=== PATIENT | female | born 1940 | race Caucasian/White ===

== ENCOUNTER 2024-07-22 12:20 | Outpatient (RCR) | payer OTHER, MEDICARE, SELFPAY ==
--- NOTE | 2024-07-23 14:31 | PT.OPE ---
PT [place] [facility] Eval PT [facility] Outpatient Eval Start: 07/22/24 14:02 Freq: Status: Active Protocol: Document 07/22/24 14:03 CHUYITA (Rec: 07/22/24 14:05 CHUYITA [id number]) E-signed By Adam Spicer DPT, MS Physical Therapy Outpatient Evaluation Insurance Information Recert Due Date 10/20/24 Insurance Name Medicare B,Other; See Comments Insurance Information/Comments [facility] Medical Diagnosis Pre-op right total knee arthroplasty Treating Diagnosis R knee pain, decreased R knee ROM, decreased R LE flexibility and strength, and gait dysfunction Referring MD 08/12/24 Subjective Preferred Name Juwan Subjective Pt is an 83 y.o. female who presents to PT prior to R TKA on 08/12/24 at [facility]. Has struggled with worsening B (R> L) knee pain over the past several years with increased difficulty with standing and walking. 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 Plans on having a L TKA as soon as she has recovered from her R TKA in order to travel to [facility]. Lives alone in a single-story townhouse that was built for alf with 1 step to enter from her garage and no steps at her front door. Has a 2-3 inch ledge entering her shower but has a built in seat along with grab bars and a toilet riser. Has a FWW from previous EDILBERTO surgery Her daughter will assist as long as needed after surgery. PMH includes B knee OA and a previous mild stroke with residual L-sided weakness. AGGR factors: walking, squatting, kneeling, standing, in<>out of cars, sleeping, uneven surfaces, extended sitting. ALLEV factors: ice, rest. Pt will perform post-op PT at [facility] in [place]. 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 Good quality of R quad set and SLR with B knee ROM of 0-0 -120 deg. Pt highly motivated to increase overall activity levels with less pain. He will benefit from continued skilled PT intervention to address these limitations, beginning PT at [facility] following R TKA. Primary Functional Limitations walking, squatting, kneeling, standing, in<>out of cars, sleeping, uneven surfaces, extended sitting Plan of Care Rehabilitation Potential Excellent Physical Therapy Goals Short-term goals to be completed in 4 weeks: 1.Pt will display improved R LE strength as evidenced by ability to perform >12 SLR of good quality to improve quality of gait and progress to ambulation with single point cane. 2.Pt will report waking <3 times per night due to R knee pain to improve quality of sleep. Long-term goals to be completed in 10 weeks: 1.Pt will be independent and compliant with HEP 2. Pt will display improved R knee passive ROM > 0-0-120 deg to improve quality of gait. 3.Pt will display improved R hip flex, hip ABD, quad and hamstring strength >4/5 to improve quality of gait without assistive device. 4.Pt report >75% improvement in LEFS questionnaire to significantly improve jackie to daily activities. Coordination/Communication With Referral Source Treatment Plan/Direct Interventions Gait Training,Joint Mobilization,Manual Therapy, Neuromuscular Re-ed, Therapeutic Activities, Therapeutic Exercises Frequency/Duration One pre-op visit then 2 x per week for at least 16-20 visits , decreasing visit frequency, as able. Patient Will Be Discharged From Therapy Completion of LTG(s),Skills Plateau,Independent w/HEP, Independently Progressing Evaluation Billing Untimed Code Treatment Minutes 25 Complexity Moderate Certification Information Initial Certification Date 07/22/24 Ending Certification Date 10/20/24 Provider Signature Required Yes Provider Signature Shows Agreement With POC & Medical Necessity Physician NPI Number Write NPI# Here Physician Comment/Change : Physician Signature & Date Requested Please Sign/Date Here
== END 2024-11-19 23:59 | disposition home or self-care (01) ==
PROVIDERS: Visit Provider Orthopaedic Surgery
DX: M17.11 Unilateral primary osteoarthritis, right knee (principal); M25.561 Pain in right knee; Z74.09 Other reduced mobility; R26.9 Unspecified abnormalities of gait and mobility; R53.1 Weakness; Z51.89 Encounter for other specified aftercare
CPT/HCPCS: 97110; 97162

== ENCOUNTER 2024-08-12 10:17 | Day surgery (SDC) | payer OTHER, MEDICARE, SELFPAY ==
[2024-08-12] VITALS (24 sets, daily range): BP systolic 110–153; BP diastolic 61–99; PULSE 70–98; RESP 14–20; TEMP 36.2–36.8; O2SAT 90–100; BMI 32.4
[2024-08-12] MEDS: OXYCODONE (CR) 10 MG TAB.ER.12H PO (12:08)
[2024-08-12] MEDS: ACETAMINOPHEN 500 MG TABLET 1000 MG PO ×2 (12:08→17:54)
[2024-08-12] MEDS: CELECOXIB 200 MG CAPSULE PO (12:08)
[2024-08-12] MEDS: LACTATED RINGERS 1000 ML 1,000 ML 100 ML IV (12:15)
[2024-08-12] MEDS: MIDAZOLAM HCL 1 MG/ML inj IVP (12:17)
[2024-08-12] MEDS: fentaNYL 100 MCG/2 ML inj IVP (12:17)
--- NOTE | 2024-08-12 12:18 | SUR.PREOP ---
TIME?OUT:?1215 PT/RN/MDA?VERIFICATION?OF?SURGICAL?SITE,?PROCEDURE,?AND?CONSENT OBTAINED?PRIOR?TO?INVASIVE?PROCEDURE. all in agreement
[2024-08-12] MEDS: SODIUM CHLORIDE 0.9 % (FLUSH) 10 ML SYRINGE IVF (12:23)
--- NOTE | 2024-08-12 12:34 | P.NB_ITS ---
Nerve Block Nerve Block Time Seen by Provider: 12:00 Date Seen: 08/12/24 Type of block requested by surgeon for post-operative analgesia: adductor canal Side: right Time out performed: Yes Verification of patient name: Yes Verification of date of : Yes Site marking: site marked Name of person performing procedure: Dagoberto Woodson Continuous monitoring Was continuous monitoring of O2 sat, B/P, medical laboratory technician, recorded every 15 minutes?: Yes Procedure Checklist: sterile prep, needles and gloves Ultrasound guided. Images saved: Yes Medications given in 5ml increments after negative aspiration: Ropivicaine %: 0.5 mL: 30 Needle gauge: 20 Decadron (mg): 10 Precedex (mcg): 25 Patient tolerated procedure well: Yes Additional comments: injected in 5ml increments after negative aspiration Block Charges Block Charge (with Pro Fee): Femoral Nerve Use of Ultrasound Machine for Block: Yes- US Guidance/pain block
--- NOTE | 2024-08-12 12:35 | P.NB_ITS ---
Nerve Block Nerve Block Time Seen by Provider: 12:00 Date Seen: 08/12/24 Type of block requested by surgeon for post-operative analgesia: geniculars Side: right Time out performed: Yes Verification of patient name: Yes Verification of date of : Yes Site marking: site marked Name of person performing procedure: Dagoberto Woodson Continuous monitoring Was continuous monitoring of O2 sat, B/P, behavioral health clinician, recorded every 15 minutes?: Yes Procedure Checklist: sterile prep, needles and gloves Ultrasound guided. Images saved: No Medications given in 5ml increments after negative aspiration: Ropivicaine %: 0.5 mL: 12 Needle gauge: 25 Patient tolerated procedure well: Yes Additional comments: Injected in 4ml increments after negative aspiration Block Charges Block Charge (with Pro Fee): Genicular Nerve Block Use of Ultrasound Machine for Block: No
[2024-08-12] MEDS: TRANEXAMIC ACID 100 MG/ML INJ 1000 MG IV (13:03)
[2024-08-12] MEDS: CEFAZOLIN 2 GM INJ IVP (13:03)
--- NOTE | 2024-08-12 14:11 | XR_ITS ---
Patient: BRUNO WISEMAN Facility:?[facility] Patient ID:?[id number] Site Patient ID:?[id number]. Site :?[id number] Study:?XRay-Knee Right postop 2V-08/12/2024 3:16:01 PM Ordering Physician:Laxmi Quintanilla Final Report: INDICATION: Postop TKA. TECHNIQUE: Two views of the right knee. FINDINGS: New right TKA. Components appear well seated. Adjacent postop soft tissue air. Dictated by Maldonado Kilgore MD @ 08/13/2024 11:29:01 AM Signed by:?Maldonado Kilgore MD @08/13/2024 11:29:01 AM (Electronic Signature)
--- NOTE | 2024-08-12 14:13 | PM.ORPRC ---
Procedure Note Date of procedure: 08/12/24 Procedure: PREOPERATIVE DIAGNOSIS: Right knee osteoarthritis POSTOPERATIVE DIAGNOSIS: Right knee osteoarthritis NAME OF OPERATION: Right total knee arthroplasty SURGEON: Dwight Bryant MD LABELLING MACHINE OPERATOR: MARY Cardona ANESTHESIA: Spinal ESTIMATED BLOOD LOSS: 0 mL COMPLICATIONS: None SPECIMENS: None DRAINS: None PREOPERATIVE ANTIBIOTICS: Ancef 2 grams IMPLANTS: 1. J&J Attune #6 posterior stabilized femur 2. #5 fixed-bearing tibia 3. #6 posterior stabilized, 5 mm fixed-bearing polyethylene 4. 38 patella INDICATIONS: The patient is a 83-year-old with a longstanding history of severe, unrelenting right knee pain secondary to end-stage (grade IV) right knee osteoarthritis. Despite appropriate nonoperative management, including activity modification, anti-inflammatories, meay-vfr-axgzxgy pain medication, bracing, physical therapy, and injections they continue to have pain and disability. Operative intervention was offered. The risks, benefits and expected outcomes were discussed in detail. These included but were not limited to: Infection, bleeding, injury to blood vessel or nerve, venous thromboembolism. All questions were answered to their satisfaction. Use of an educational program assistant was necessary throughout the case for patient positioning and safety, soft tissue retraction, and closure. PROCEDURE: Spinal anesthesia was administered. The patient was placed supine on the operating table. The educational program assistant made sure the patient was positioned appropriately. The lower extremity was prepped and draped in the usual sterile fashion. The limb was exsanguinated with the Nicholas bandage. The pneumatic tourniquet was inflated to 300 mmHg. A standard anterior incision was made with the knee in flexion. Subcutaneous dissection was sharply taken through fascial layer #1. Full-thickness medial and lateral flaps were elevated. The educational program assistant retracted the soft tissues and protected them throughout the case. A standard subvastus approach was made. The patella was subluxed. The infrapatellar fat pad was debrided. The menisci and cruciate ligaments were sharply d?brided. Marginal osteophytes were d?brided with the rongeur. The drill was used to penetrate the femoral canal. The canal was aspirated and irrigated with pulse lavage. The intramedullary femoral guide was placed for a 5-degree valgus cut, removing 10 mm off the distal femur. The saw was used to make the cut. Whitesides line and the trans epicondylar axis were marked. The femoral sizing guide was pinned onto the distal femur. Three degrees of external rotation nicely parallels the transepicondylar axis. Pins were placed for posterior referencing. The four-in-one cutting guide was pinned onto the distal femur. The anterior, posterior, and chamfer cuts were made. The educational program assistant protected the collateral ligaments. The box cutting guide was pinned. The box cuts were made. The boxed trial was placed and was an excellent fit. Drill holes for the lugs were made. Attention was then turned to the proximal tibia. The extramedullary tibial guide was placed for a neutral varus/valgus cut with 5 degrees of posterior slope, removing 2 mm based off the medial tibial surface. The educational program assistant protected the collateral ligaments and the neurovascular bundle. The saw was used to make the cut. Trial components were placed. The knee was nicely balanced in both flexion and extension. The trial components were removed. The tray was placed in appropriate rotation, parallel to our tibial cutting pins. It was pinned by the educational program assistant and the drill and the punch were used. The tray was removed. The punch was used again. We placed a bone plug in the femoral canal. Attention was then turned to the patella. [place] patellar thickness was 22 mm. The lobster claw resection guide was used with the 7.5 mm vincent. The saw was used to make the cut. Drill holes were made by the educational program assistant. The trial was placed and was an excellent fit. Cancellous surfaces were irrigated with pulse lavage and thoroughly dried by the educational program assistant. We cemented the tibial component, then the femoral component. We impacted the 5 mm polyethylene onto the tibial tray. The knee was brought into full extension. We then cemented the patellar component. Excessive cement was removed. The cement was allowed to harden. The knee was taken through a range of motion and was found to be nicely balanced in both flexion and extension. The patella tracks centrally. The educational program assistant did a three minute dilute Betadine solution soak. The educational program assistant irrigated the wound with 3 liters of normal saline via pulse lavage. The educational program assistant reapproximated the extensor mechanism with #1 Vicryl in an interrupted [id number]-qm-tfjih fashion. The educational program assistant then ran the extensor mechanism with a #1 PDO Stratafix. The educational program assistant closed the subcutaneous tissues with a 3-0 Stratafix and the skin with a running 3-0 Stratafix in a subcuticular fashion. Glue was used to seal the skin. The educational program assistant placed a dry dressing. Sponge and needle counts were correct x2. The patient tolerated the procedure well. There were no apparent complications. They were carefully transferred to the hospital bed and taken to the postanesthesia care unit in satisfactory condition. PLAN: The patient will be mobilized with physical therapy. Aspirin will be used for DVT prophylaxis. They will be discharged to home once medically appropriate.
--- NOTE | 2024-08-12 14:47 | W.ANESCHARGE ---
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
--- NOTE | 2024-08-12 15:02 | SUR.PHASEI ---
Patient arrived to PACU awake and responsive. No complaints of pain or nausea when asked.
--- NOTE | 2024-08-12 15:16 | SUR.PHASEI ---
Patient taking ice chips, like the feeling of the compression device on her feet. Patient meets anesthesia discharge criteria from PACU, no pain or nausea, no oxygen needed in PACU.
[2024-08-12] MEDS: LACTATED RINGERS 1000 ML 1,000 ML 75 ML IV (15:55)
--- NOTE | 2024-08-12 16:18 | PM.IMCN1 ---
Date of Consult Patient: [facility] Patient Consult date: 08/12/24 Requesting Physician: Orthopedics Primary Care Provider: Not a Local Provider Consult Narrative Reason for consult: Medical management postoperatively Narrative: Genevieve Hernandez is a 83 year old female past medical history significant for hypertension, hyperlipidemia, osteoarthritis is POD#0 s/p right total knee arthroplasty, Dr. Bryant. There have been no perioperative complications or nursing concerns reported. Estimated total blood loss documented as 0 ml. Updated and reviewed the active medical problems, past medical history, past surgical history, social history, allergies and medications in our electronic EMR. Postoperatively, patient reports pain is currently well managed. Denies headache or dizziness. Denies chest pain or shortness of breath. Denies nausea as, tolerating orals without vomiting. Review of Systems Narrative: REVIEW OF SYSTEMS: Complete review of systems performed and negative unless otherwise stated in HPI or below. PFSH PFS Medical History GERD (gastroesophageal reflux disease) ?K21.9 - Gastro-esophageal reflux disease without esophagitis (ICD-10) Depression ?F32.A - Depression, unspecified (ICD-10) Right arm weakness ?R29.898 - Other symptoms and signs involving the musculoskeletal system (ICD-10) Left arm weakness ?R29.898 - Other symptoms and signs involving the musculoskeletal system (ICD-10) Hypertension ?I10 - Essential (primary) hypertension (ICD-10) Hyperlipidemia ?E78.5 - Hyperlipidemia, unspecified (ICD-10) Glaucoma ?H40.9 - Unspecified glaucoma (ICD-10) Elevated cholesterol ?E78.00 - Pure hypercholesterolemia, unspecified (ICD-10) Arthritis ?M19.90 - Unspecified osteoarthritis, unspecified site (ICD-10) Stroke ?I63.9 - Cerebral infarction, unspecified (ICD-10) Surgical History H/O: hysterectomy ?Z90.710 - Acquired absence of both cervix and uterus (ICD-10) H/O breast biopsy ?Z98.890 - Other specified postprocedural states (ICD-10) History of left hip replacement ?Z96.642 - Presence of left artificial hip joint (ICD-10) Social History Problems where you live: no known problems Smoking Status: Never smoker How often do you have a drink containing alcohol: never AUDIT-C Alcohol total score: 0 Non-prescribed substance use: denies use Caffeine: Yes (coffee) Meds Home Medications and Allergies Home Medications ?Medication ?Instructions ?Recorded ?Confirmed ?Type ascorbic acid (vitamin C) 500 mg 500 mg PO DAILY 06/02/24 08/12/24 History capsule aspirin 325 mg tablet 325 mg PO QDAY 06/02/24 08/12/24 History atorvastatin 10 mg tablet 10 mg PO QDAY 06/02/24 08/12/24 History chlorthalidone 25 mg tablet 25 mg PO QDAY 06/02/24 08/12/24 History lansoprazole 30 mg capsule,delayed 30 mg PO QDAY 06/02/24 08/12/24 History release magnesium 200 mg tablet 200 mg PO QDAY 06/02/24 08/12/24 History tafluprost (PF) 0.0015 % eye drops 1 drp ophthalmic (eye) QDAY 06/02/24 06/02/24 History in a dropperette Allergies Allergy/AdvReac Type Severity Reaction Status Date / Time No Known Drug Allergies Allergy Verified 06/02/24 14:51 Exam Narrative: Exam Narrative: PHYSICAL EXAM General: Pleasant, conversant, NAD HEENT: Normocephalic, atraumatic, sclera white, EOMI, oral mucosa moist Cardiovascular: RRR, S1S2. No pitting edema Pulmonary: CTA bilaterally without rhonchi, rales, expiratory wheezes. No dyspnea Abdominal: Soft, nondistended, NTTP Neurological: Alert, answering questions appropriately, cranial nerves intact, no focal findings Extremities: No gross joint deformity or swelling. Postoperative dressing in place, dry. Neurovascularly intact Skin: Warm, dry. Const: Vital Signs, click to edit/add: Vital Signs - 24 hr 08/12/24 11:11 08/12/24 12:15 08/12/24 12:19 Temperature 97.5 F L Pulse Rate 89 77 75 Respiratory Rate 16 16 16 Blood Pressure 140/70 H 146/86 H 153/72 H Pulse Oximetry 98 99 99 Oxygen Delivery Me thod Room Air Nasal Cannula Nasal Cannula Oxygen Flow Rate 2 2 08/12/24 14:44 08/12/24 14:45 08/12/24 14:50 Temperature 97.8 F Pulse Rate 83 80 76 Respiratory Rate 20 15 17 Blood Pressure 110/61 118/66 112/67 Pulse Oximetry 93 91 93 Oxygen Delivery Me thod Room Air Room Air Room Air Oxygen Flow Rate 08/12/24 14:55 08/12/24 15:00 08/12/24 15:05 Temperature Pulse Rate 78 75 79 Respiratory Rate 20 16 14 Blood Pressure 119/70 124/82 122/73 Pulse Oximetry 93 93 93 Oxygen Delivery Me thod Room Air Room Air Room Air Oxygen Flow Rate 08/12/24 15:10 08/12/24 15:15 08/12/24 15:20 Temperature 97.8 F Pulse Rate 73 74 76 Respiratory Rate 16 16 16 Blood Pressure 124/71 129/77 125/72 Pulse Oximetry 96 94 100 Oxygen Delivery Me thod Room Air Room Air Room Air Oxygen Flow Rate 08/12/24 16:12 08/12/24 16:13 Temperature Pulse Rate 75 74 Respiratory Rate Blood Pressure 138/99 H Pulse Oximetry 93 94 Oxygen Delivery Me thod Oxygen Flow Rate Assessment and Plan Assessment and plan (1) Osteoarthritis of right knee: Problem comment: -POD#0 s/p R TKA, Dr. Bryant -perioperative management including pain management and anticoagulation per Orthopedic surgery (chronically on aspirin 325 mg daily for history of CVA) -encourage postoperative pulmonary hygiene -PT OT consults -plan to discharge home with daughter tomorrow Status: Acute (2) Hyperlipidemia: Problem comment: -continue statin Status: Acute (3) Hypertension: Problem comment: -stable -on chlorthalidone for chronic edema Status: Acute Total Time Spent Total Time Spent: Total time spent caring for the patient today was 45 minutes. This includes time spent for the visit reviewing the chart, time spent during the visit, time spent after the visit and documentation and planning in coordination of care.
--- NOTE | 2024-08-12 18:34 | PC.NURSE ---
End of shift [id number]:? Pt arrived to unit @ 1525. Post op RTKA.?Pt AxOx4, cooperative, and pleasant. Pt on bedrest since arrival. Pt reported pain 0/10 throughout shift. No nausea present. CMS intact. Pt tolerating reg fluids/diet well. Dressing to the R knee is CDI. Ice applied. LR running @ 75ml to the L hand. Pt appears resting and watching television, call light in reach.??
[2024-08-12] MEDS: CEFAZOLIN 2 GM in 0.9 % SODIUM CHLORIDE Mini-bag 100 ML IVPB (18:41)
[2024-08-12] MEDS: OXYCODONE 5 MG TABLET PO (20:39)
[2024-08-12] MEDS: SENNOSIDES 1 TAB TABLET 2 TAB PO (20:39)
[2024-08-12] MEDS: ASPIRIN 81 MG TABLET EC PO (20:39)
[2024-08-13] MEDS: ACETAMINOPHEN 500 MG TABLET 1000 MG PO ×2 (00:05→06:27)
[2024-08-13] MEDS: OXYCODONE 5 MG TABLET PO ×3 (00:06→09:03)
[2024-08-13 03:00] VITALS: BP 153/85; PULSE 93; RESP 18; TEMP 37.1; O2SAT 96
[2024-08-13] MEDS: CEFAZOLIN 2 GM in 0.9 % SODIUM CHLORIDE Mini-bag 100 ML IVPB (03:03)
[2024-08-13 06:24] LABS: Basophils Absolute Auto 0.01 K/uL (0.00-0.30); Basophils Percent Auto 0.1 % (0.0-3.0); Hematocrit 33.8 % (33.0-51.0); Hemoglobin* 10.9 gm/dL (12.0-16.0); Immature Granulocytes Abs Auto 0.09 K/uL (0.00-0.30); Immature Granulocytes Pct Auto 0.8 %; Lymphocytes Percent Auto 10.7 % (20-44); Mean Corpuscular HGB Conc 32 gm/dL (32-36); Mean Corpuscular Hemoglobin 30 pg (26-34); Mean Corpuscular Volume 93 fL (80-100); Neutrophils Percent Auto 82.4 % (42.0-72.0); Platelet Count* 235 K/uL (140-440); RDW Coefficient of Variation % 13.4 % (11.5-15.5); Red Blood Count 3.65 m/uL (4.00-5.20); White Blood Count* 10.68 K/uL (4.50-11.00)
[2024-08-13] MEDS: OMEPRAZOLE 20 MG CAPSULE DR 30 MG PO (06:27)
[2024-08-13 06:35] LABS: Slide Review Reflex No; Sodium* 134 mmol/L (135-149)
[2024-08-13 06:36] LABS: Potassium* 3.9 mmol/L (3.6-5.1)
[2024-08-13 06:37] LABS: INR 0.98 (0.91-1.10); Prothrombin Time 13.6 Seconds
[2024-08-13 06:38] LABS: Creatinine* 0.7 mg/dL (0.5-1.5); Est. Creatinine Clearance* 40.72; Estimated Glomerular Filt Rate 85 ml/min
[2024-08-13 06:39] LABS: Blood Urea Nitrogen* 27 mg/dL (7-30)
--- NOTE | 2024-08-13 06:43 | PC.NURSE ---
Pt alert, oriented and vitally stable. Up to the bathroom several times throughout shift via SBA and tolerated well. SL IV in the right wrist, pt tolerating fluids PO. Pt pain rated 3-8/10 throughout shift, prn oxy given, pt stated improvement. Pt up to chair for an hour, tolerated well.
[2024-08-13 07:00] VITALS: BP 135/68; PULSE 92; RESP 16; TEMP 36.8; O2SAT 95
--- NOTE | 2024-08-13 08:19 | PM.ORPN ---
Subjective Subjective Time Seen by Provider: 07:45 Date Seen: 08/13/24 Principal diagnosis: Status post right knee replacement Interval history: Genevieve is comfortable this morning. She will discharge to home with her daughter today. Ortho Exam Narrative Exam Narrative: Alert and oriented x3. Patient is in no acute distress. Converses without labored breathing. Hearing is grossly intact. Ambulates with a walker. Examination of the right knee shows the dressing is intact. Mild edema. No erythema or warmth or sign of infection. Good quad strength. CMS intact right lower extremity. Calves are soft and nontender Const Vital Signs, click to edit/add: Vital Signs - 24 hr 08/12/24 11:11 08/12/24 12:15 08/12/24 12:19 Temperature 97.5 F L Pulse Rate 89 77 75 Pulse Rate [Left Pulse Oximeter] Respiratory Rate 16 16 16 Blood Pressure 140/70 H 146/86 H 153/72 H Blood Pressure [Left Arm] Pulse Oximetry 98 99 99 Oxygen Delivery Method Room Air Nasal Cannula Nasal Cannula Oxygen Flow Rate 2 2 08/12/24 14:44 08/12/24 14:45 08/12/24 14:50 Temperature 97.8 F Pulse Rate 83 80 76 Pulse Rate [Left Pulse Oximeter] Respiratory Rate 20 15 17 Blood Pressure 110/61 118/66 112/67 Blood Pressure [Left Arm] Pulse Oximetry 93 91 93 Oxygen Delivery Method Room Air Room Air Room Air Oxygen Flow Rate 08/12/24 14:55 08/12/24 15:00 08/12/24 15:05 Temperature Pulse Rate 78 75 79 Pulse Rate [Left Pulse Oximeter] Respiratory Rate 20 16 14 Blood Pressure 119/70 124/82 122/73 Blood Pressure [Left Arm] Pulse Oximetry 93 93 93 Oxygen Delivery Method Room Air Room Air Room Air Oxygen Flow Rate 08/12/24 15:10 08/12/24 15:15 08/12/24 15:20 Temperature 97.8 F Pulse Rate 73 74 76 Pulse Rate [Left Pulse Oximeter] Respiratory Rate 16 16 16 Blood Pressure 124/71 129/77 125/72 Blood Pressure [Left Arm] Pulse Oximetry 96 94 100 Oxygen Delivery Method Room Air Room Air Room Air Oxygen Flow Rate 08/12/24 15:25 08/12/24 15:40 08/12/24 16:00 Temperature 97.6 F 97.7 F 97.8 F Pulse Rate 73 70 77 Pulse Rate [Left Pulse Oximeter] Respiratory Rate 14 16 16 Blood Pressure 121/74 127/68 125/69 Blood Pressure [Left Arm] Pulse Oximetry 93 94 90 Oxygen Delivery Method Room Air Room Air Room Air Oxygen Flow Rate 08/12/24 16:13 08/12/24 16:30 08/12/24 17:00 Temperature 97.2 F L 97.5 F L 98.1 F Pulse Rate 74 82 96 Pulse Rate [Left Pulse Oximeter] Respiratory Rate 16 16 14 Blood Pressure 138/99 H 130/90 H 124/66 Blood Pressure [Left Arm] Pulse Oximetry 94 96 94 Oxygen Delivery Method Room Air Room Air Oxygen Flow Rate 08/12/24 17:30 08/12/24 18:30 08/12/24 19:00 Temperature 97.5 F L 98 F 97.6 F Pulse Rate 98 95 90 Pulse Rate [Left Pulse Oximeter] Respiratory Rate 16 16 16 Blood Pressure 134/73 132/66 141/70 H Blood Pressure [Left Arm] Pulse Oximetry 94 91 93 Oxygen Delivery Method Room Air Room Air Room Air Oxygen Flow Rate 08/12/24 19:00 08/12/24 19:00 08/12/24 20:00 Temperature 97.6 F 97.3 F L Pulse Rate 81 Pulse Rate [Left Pulse Oximeter] 90 Respiratory Rate 16 16 Blood Pressure 124/71 Blood Pressure [Left Arm] Pulse Oximetry 93 94 Oxygen Delivery Method Room Air Room Air Room Air Oxygen Flow Rate 08/12/24 21:00 08/12/24 23:00 08/12/24 23:00 Temperature Pulse Rate 91 Pulse Rate [Left Pulse Oximeter] 76 Respiratory Rate 19 18 18 Blood Pressure 123/72 Blood Pressure [Left Arm] Pulse Oximetry 90 96 Oxygen Delivery Method Room Air Room Air Oxygen Flow Rate 08/12/24 23:00 08/12/24 23:00 08/13/24 03:00 Temperature 98.2 F 98.2 F 98.8 F Pulse Rate 91 Pulse Rate [Left Pulse Oximeter] 76 93 Respiratory Rate 19 18 18 Blood Pressure 127/73 Blood Pressure [Left Arm] 127/73 153/85 H Pulse Oximetry 96 96 96 Oxygen Delivery Method Room Air Room Air Room Air Oxygen Flow Rate Assessment and Plan Assessment and plan (1) Status post right knee replacement: Problem details: 08/12/2024Manny Status: Acute Assessment and Plan: Plan for discharge is today to home if they meet discharge criteria. DVT prophylaxis includes aspirin 325 mg daily, this his her usual aspirin daily dose, Compression stockings as needed for swelling. Frequent ambulation, every hour throughout the day. Remove dressing in 1 week. Observe wound and phone Orthopedics with any questions or concerns Return to clinic in 1 week for a wound check Return to clinic in 6 weeks with surgeon Minimize narcotic use. Wean off and discontinue soon as possible. Activities as tolerated. No strenuous activity. Outpatient physical therapy as scheduled. Ice and elevate the operative extremity. No restriction on ice.
[2024-08-13] MEDS: SENNOSIDES 1 TAB TABLET 2 TAB PO (08:36)
[2024-08-13] MEDS: CHLORTHALIDONE 25 MG TABLET PO (08:37)
[2024-08-13] MEDS: ASPIRIN 81 MG TABLET EC PO (08:37)
[2024-08-13] MEDS: ATORVASTATIN 10 MG TABLET PO (08:37)
--- NOTE | 2024-08-13 09:25 | PC.SOCIAL ---
Social work nutrition intern completed a discharge planning assessment with pt and pt's daughter. Pt has not been previously admitted to any hospital in the last 30 days and is her own decision maker. There is one step to get into her house, but she can use a different door if the step is a problem. She does not currently receive any home services and is not requesting resources at this time. 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 Her daughter will be her primary caregiver during her recovery. She is expecting to return to work in a few months. No mental health needs were identified at this time. Pt feels comfortable discharging today. Social work to follow up if needed.
== END 2024-08-13 11:06 | disposition home or self-care (01) ==
LOC: OR 10:18 → MEDSURG 10:22
PROVIDERS: Visit Provider Orthopaedic Surgery
PROC: (CPT 27447; principal; 2024-08-12 12:45)
DX: M17.11 Unilateral primary osteoarthritis, right knee (principal); G89.18 Other acute postprocedural pain; I10 Essential (primary) hypertension; K21.9 Gastro-esophageal reflux disease without esophagitis; E78.5 Hyperlipidemia, unspecified; E66.9 Obesity, unspecified; Z68.32 Body mass index [BMI] 32.0-32.9, adult
CPT/HCPCS: 27447; 01402; 36415; 64447; 64454; 73560; 76942; 82565; 84132; 84295; 84520; 85025; 85610; 97110; 97116; 97161; 97165; 97530; 97535; 99100; A9270; C1776; J0690; J1100; J2250; J2405; J2704; J2795; J3010; J7120

== ENCOUNTER 2025-07-07 06:53 | Day surgery (SDC) | payer OTHER, MEDICARE, SELFPAY ==
[2025-07-07] VITALS (11 sets, daily range): BP systolic 111–141; BP diastolic 62–90; PULSE 74–83; RESP 14–18; TEMP 36.3–37.1; O2SAT 94–99; BMI 32.3
[2025-07-07] MEDS: LACTATED RINGERS 1000 ML 1,000 ML 100 ML IV (07:00)
[2025-07-07] MEDS: SODIUM CHLORIDE 0.9 % (FLUSH) 10 ML SYRINGE IVF (07:52)
--- NOTE | 2025-07-07 09:05 | SUR.OPER ---
PATIENT QUESTIONS ANSWERED SATISFACTORILY PREOPERATIVELY.? PATIENT BROUGHT TO OR #3 PER CART.? Patient positioned supine on OR #3 bed.? The perioperative?team supported arms bilaterally on arm boards.? Final approval of positioning by surgeon.? CONTINUOUS IRRIGATION OF THE RIGHT KNEE DURING THE PROCEDURE WITH NACL.
[2025-07-07] MEDS: BUPIVACAINE 0.25% 30 ML INJECTION (10:50)
--- NOTE | 2025-07-07 10:59 | P.ORPRC_ITS ---
Procedure Note Date of procedure: 07/07/25 Procedure: PREOPERATIVE DIAGNOSIS: Right total knee arthroplasty patellar clunk syndrome POSTOPERATIVE DIAGNOSIS: Right total knee arthroplasty patellar clunk syndrome NAME OF OPERATION: Right total knee arthroplasty arthroscopic debridement SURGEON: Dwight Bryant MD ROBOTICS TECHNICIAN: Yael Saravia PA-C ANESTHESIA: Spinal ESTIMATED BLOOD LOSS: 0 mL COMPLICATIONS: None SPECIMENS: None DRAINS: None PREOPERATIVE ANTIBIOTICS: Ancef 2 gram INDICATIONS: The patient is a 84-year-old with a history of right total knee arthroplasty patellar clunk syndrome. Operative intervention was recommended. The risks, benefits and expected outcomes were discussed in detail. These included but were not limited to: Infection, bleeding, injury to blood vessel or nerve, venous thromboembolism. All questions were answered to their satis faction. PROCEDURE: Spinal anesthesia was administered. The patient was placed supine on the operating room table. The right lower extremity was prepped and draped in the usual sterile fashion. The limb was exsanguinated with the Nicholas bandage. The pneumatic tourniquet was inflated to 300 mmHg. A standard anterolateral portal was established. The arthroscope was introduced. The working portal was established anteromedially. Diagnostic arthroscopy was performed with findings as follows: The patellar component is intact with circumferential scarring surrounding it. The femoral component is normal, the tibial polyethylene is normal. The scarring posterior to the patellar tendon was debrided with the radiofrequency probe and shaver. A superolateral portal was placed. Then we ag gressively debrided around the patellar component and posterior to the quads tendon with the shaver and radiofrequency probe. Arthroscopic instruments were removed, the portal sites were closed with a 3-0 nylon. Portals were injected with 0.25% Marcaine without epinephrine. A dry dressing was applied, the tourniquet was released. Sponge and needle counts were correct x 2. The patient tolerated the procedure well. There were no apparent complications. They were carefully transferred to the hospital bed and taken to the postanesthesia care unit in satisfactory condition. PLAN: The patient will be discharged to home. They may weightbear as tolerates. Range of motion will be unrestricted. They will follow up in the office in 2 weeks for a wound check and suture removal.
--- NOTE | 2025-07-07 11:09 | P.ANES_ITS ---
Anesthesia Charges Start Date/Time Anesthesia Start Date: 07/07/25 Anesthesia Start Time: 09:43 Stop Date/Time Anesthesia Stop Date: 07/07/25 Anesthesia Stop Time: 11:06 Summary Extremes of Age - Over 70 or under 1: PEARL FISHERMAN Coding CPT Codes CPT Codes: ANESTH KNEE JOINT SURGERY - 52219 ([id number]) P3 - PATIENT W/SEVERE SYS DISEASE, QK - WINDOWS SYSTEMS ARCHITECT 2-4 CNCRNT ANES PROC, QX - PEARL FISHERMAN SVC W/ MD MED DIRECTION Additional Codes: Summary - Extremes of Age - Over 70 or under 1: PEARL FISHERMAN ([id number])
--- NOTE | 2025-07-07 11:09 | W.ANESCHARGE ---
Anesthesia Charges Start Date/Time Anesthesia Start Date: 07/07/25 Anesthesia Start Time: 09:43 Stop Date/Time Anesthesia Stop Date: 07/07/25 Anesthesia Stop Time: 11:06 Summary Extremes of Age - Over 70 or under 1: BURNT LIME DRAWER Coding CPT Codes CPT Codes: ANESTH KNEE JOINT SURGERY - 59855 ([id number]) P3 - PATIENT W/SEVERE SYS DISEASE, QK - BREWERY TECHNICIAN 2-4 CNCRNT ANES PROC, QX - BURNT LIME DRAWER SVC W/ MD MED DIRECTION Additional Codes: Summary - Extremes of Age - Over 70 or under 1: BURNT LIME DRAWER ([id number])
--- NOTE | 2025-07-07 12:17 | P.ANES_ITS ---
Anesthesia Charges Start Date/Time Anesthesia Start Date: 07/07/25 Anesthesia Start Time: 09:43 Stop Date/Time Anesthesia Stop Date: 07/07/25 Anesthesia Stop Time: 11:06 Summary Extremes of Age - Over 70 or under 1: MDA Coding CPT Codes CPT Codes: ANESTH KNEE JOINT SURGERY - 31443 ([id number]) QK - OPHTHALMIC TECHNOLOGIST 2-4 CNCRNT ANES PROC, QX - CUTTING MACHINE FIXER SVC W/ MD MED DIRECTION, P3 - PATIENT W/SEVERE SYS DISEASE Additional Codes: Summary - Extremes of Age - Over 70 or under 1: MDA ([id number])
== END 2025-07-07 12:48 | disposition home or self-care (01) ==
PROVIDERS: Visit Provider Orthopaedic Surgery
PROC: (CPT 29870; principal; 2025-07-07 09:00)
DX: M25.861 Other specified joint disorders, right knee (principal); Z96.651 Presence of right artificial knee joint
CPT/HCPCS: 29877; 01400; 99100; J0665; J0690; J2371; J2405; J2704; J7120